=== PATIENT | male | born 1960 | race Caucasian/White ===

== ENCOUNTER 2019-08-26 10:45 | Inpatient (IN) ==
--- NOTE | 2019-08-11 15:12 | PAT Medication Instructions ---
Medication Instructions Date of Service August 11, 2019 Home Medications ascorbic acid (vitamin C) [Vitamin C] 1,000 mg PO DAILY 08/05/19 [History Confirmed 08/05/19] aspirin [Aspirin Low Dose] 81 mg PO DAILY 08/05/19 [History Confirmed 08/05/19] cholecalciferol (vitamin D3) [Vitamin D3] 1,000 unit PO DAILY cyanocobalamin (vitamin B-12) 1,000 mcg PO DAILY 08/05/19 [History Confirmed 08/05/19] labetalol 600 mg PO BID 08/05/19 [History Confirmed 08/05/19] lisinopril 40 mg PO QAM 08/05/19 [History Confirmed 08/05/19] loperamide [Imodium A-D] 2 mg PO UD PRN vitamin E 400 unit PO DAILY 08/05/19 [History Confirmed 08/05/19] ASK your prescriber and surgeon aspirin [Aspirin Low Dose] 81 mg PO DAILY 08/05/19 [History Confirmed 08/05/19] STOP taking 2 weeks before surgery (or as soon as possible if surgery is within 2 weeks) vitamin E 400 unit PO DAILY 08/05/19 [History Confirmed 08/05/19] DO NOT take the morning of surgery ascorbic acid (vitamin C) [Vitamin C] 1,000 mg PO DAILY 08/05/19 [History Confirmed 08/05/19] cholecalciferol (vitamin D3) [Vitamin D3] 1,000 unit PO DAILY cyanocobalamin (vitamin B-12) 1,000 mcg PO DAILY 08/05/19 [History Confirmed 08/05/19] lisinopril 40 mg PO QAM 08/05/19 [History Confirmed 08/05/19] loperamide [Imodium A-D] 2 mg PO UD PRN Take morning of surgery With a small sip of water, OTHERWISE NOTHING TO EAT OR DRINK AFTER MIDNIGHT: labetalol 600 mg PO BID 08/05/19 [History Confirmed 08/05/19] Take evening before surgery labetalol 600 mg PO BID 08/05/19 [History Confirmed 08/05/19] loperamide [Imodium A-D] 2 mg PO UD PRN (if needed) Other Notes If you have any questions please call us at [phone] or [phone] or [phone] or [phone]
--- NOTE | 2019-08-12 11:08 | Anesthesiology Consultation ---
Date of Service August 12, 2019 Assessment & Plan (1) Encounter for pre-operative examination: Chart Review Chart Review: Pending: Refer to Additional Notes / Consult section (pending preop testing (labs, EKG, CXR)) and Patient seen in Pre Admission Testing Teaching & Discussion Pre-Anesthesia Teaching/Discussion Notes: Instructed NPO after midnight before surgery,except medications with 15 cc of water. Medication instructions provi ded according to the PAT guidelines. History Surgery Operation Date: 08/26/19 07:45 Proposed Procedures p L3-L5 Decompression and Fusion, Spinal Cord Monitoring - Boby Arredondo, Height/Weight Height: 6 ft 2.5 in Weight: 148.2 kg Allergies Allergy/AdvReac Type Severity Reaction Status Date / Time No Known Allergies Allergy Verified 08/05/19 12:23 Medications Home Medications Medication Instructions Recorded Confirmed Last Taken ascorbic acid (vitamin C) [Vitamin 1,000 mg PO DAILY 08/05/19 08/05/19 Unknown C] aspirin [Aspirin Low Dose] 81 mg PO DAILY 08/05/19 08/05/19 Unknown cholecalciferol (vitamin D3) 1,000 unit PO DAILY 08/05/19 08/05/19 Unknown [Vitamin D3] cyanocobalamin (vitamin B-12) 1,000 mcg PO DAILY 08/05/19 08/05/19 Unknown labetalol 600 mg PO BID 08/05/19 08/05/19 Unknown lisinopril 40 mg PO QAM 08/05/19 08/05/19 Unknown loperamide [Imodium A-D] 2 mg PO UD PRN 08/05/19 08/05/19 Unknown vitamin E 400 unit PO DAILY 08/05/19 08/05/19 Unknown Past Medical History Medical History Degenerative disc disease Hypertension Morbid obesity Sleep apnea CPAP Exercise / Class Metabolic Activity III < 4 Walking/Shop/Light housework Past Family History Family History Father Family history of diabetes mellitus Past Surgical History Surgical History History of appendectomy History of cholecystectomy History of colonoscopy History of herniorrhaphy History of tonsillectomy and adenoidectomy Hx of vasectomy Past Anesthesia History No Hx of Anesthesia Complications and No Family Hx of Anesthesia Complications History of PONV No Hx of PONV and No Hx of Motion Sickness Social History Smoking Status: Never smoker Do You Dip or Chew Tobacco: Yes (5 CANS/WEEK- ADVISED NPO) Hx Alcohol Use: Yes Alcohol type: beer alcohol intake frequency: a few times a week Hx Substance Use: No substance use type: does not use Review of Systems Rare reflux. Patient denies chest pain, shortness of breath, cough, wheezing, palpitations. Physical Exam Vital Signs VITALS BP 156/96 P 71 TEMP 98.3 SP02 96%RA RESP 18 PHYSICAL Full neck and c-spine range of motion. Full TMJ range of motion. TMD 4 finger breaths Mallampati Score 1 Dentition: intact Lungs: clear throughout to auscultation Cardiac: regular rate and rhythm, no murmurs noted Spine: normal Carotid arteries: negative bruit Extremities: no edema Trimmed rodriguez Short, thick neck
[2019-08-12 12:33] LABS: Basophils # (auto) 0.04 K/uL (0-0.2); Basophils % (auto) 0.4 %; Eosinophils # (auto) 0.18 K/uL (0-0.5); Eosinophils % (auto) 1.9 %; Hematocrit (blood only) 45.7 % (42-52); Hemoglobin 16.4 g/dL (14.0-18.0); Immature Granulocytes # (auto) 0.03 K/uL (0.00-0.02); Immature Granulocytes % (auto) 0.3 %; Lymphocytes # (auto) 2.79 K/uL (1.2-3.4); Mean Corpuscular Hemoglobin 32.6 pg (25-34); Mean Corpuscular Hgb Conc 35.9 g/dL (32-36); Mean Corpuscular Volume 90.9 fL (80-100); Mean Platelet Volume 9.7 fL (7.4-10.4); Monocytes % (auto) 5.4 %; Neutrophils # (auto) 5.76 K/uL (1.4-6.5); Platelet Count 174 K/uL (130-400); RDW Coefficient of Variation 13.1 % (11.5-14.5); RDW Standard Deviation 43.1 fL (36.4-46.3); Red Blood Count 5.03 M/uL (4.7-6.1)
[2019-08-12 12:36] LABS: Appearance Urine Cloudy (Clear); Bacteria Urine Automated Negative (Negative); Bilirubin Urine Negative (Negative); Blood Urine Negative (Negative); Color Urine Dark Yellow; Epithelial Cell Urine Auto >30 /lpf (0-5); Glucose Urine UA Negative (Negative); Ketones Urine Trace (Negative); Leukocyte Esterase Urine 1+ (Negative); Nitrite Urine Negative (Negative); Protein Urine 1+ (Negative); Specific Gravity Urine 1.025 (1.000-1.030); Urobilinogen Urine Negative (Negative); pH Urine 5.5 (4.5-7.5)
[2019-08-12 12:44] LABS: INR 1.1 (0.9-1.1)
--- NOTE | 2019-08-12 12:45 | XRay Report ---
XR chest Pre-admission PA/Lat HISTORY: Preop. COMPARISON: None. FINDINGS: Eventration of the right hemidiaphragm. Right basilar linear densities favor subsegmental a telectasis or scarring. Otherwise, the lungs are clear. No pleural effusions. No pneumothorax. The he art is normal in size. IMPRESSION: No acute process. Electronically signed by: Chuck Michael M.D. 08/12/2019 12:44 PM
[2019-08-12 12:52] LABS: BUN Creatinine Ratio 10.3 (10-20); Calcium 9.2 mg/dl (8.5-10.1); Creatinine Clr Calc Pharmacy 98.1 ml/min; Est GFR (African American) 70.7; Potassium 4.3 mmol/L (3.5-5.1)
[~2019-08-26 10:45] MED LIST: ACETAMINOPHEN 500 MG TAB PO SCH; CEFAZOLIN 3000MG 72.5 ML IV SCH; CeleBREX 200 MG CAP PO SCH; GABAPENTIN 600 MG DOSE PO SCH; LR 15ML/HR IV SCH; SODIUM CHLORIDE 0.9% 250 ML IV PRN
[2019-08-26] MEDS ORDERED: HYDROmorphone INJ 2 MG/ML SYR/VIAL ONE ×2 (11:16→13:44)
[2019-08-26] MEDS ORDERED: MIDAZOLAM HCL 1 MG/ML 2ML VIAL ONE (11:16)
[2019-08-26] MEDS ORDERED: fentaNYL citrate 100 MCG/2 ML VIAL ONE ×5 (11:16→13:49)
[2019-08-26] MEDS ORDERED: LABETALOL HCL IV 5 MG/ML 20ML IV PRN (12:36)
[2019-08-26] MEDS ORDERED: ONDANSETRON INJ 2 MG/ML 2 ML VIAL IV PRN ×2 (12:36→17:15)
[2019-08-26] MEDS ORDERED: ATROPINE SULFATE 0.1 MG/ML 10ML SYR IV PRN ×2 (12:36→16:27)
--- NOTE | 2019-08-26 12:44 | History & Physical Bridge Note ---
Date of Service August 26, 2019 History & Physical Bridge Note I have examined the patient, reviewed the History & Physical and in the interval since the performance of the History & Physical I have noted the following changes of clinical significance: no changes noted
--- NOTE | 2019-08-26 12:45 | History & Physical Report ---
Date of Service August 26, 2019 Assessment & Plan (1) Neurogenic claudication due to lumbar spinal stenosis: Decompression fusion L3-L5 Present on Admission?: Yes History of Present Illness Chief Complaint: Back and bilateral leg pain Primary Care Provider: Mónica Beavers This is a 59-year-old male who presents with chronic persistent back and bilateral leg pain. Failing extensive course of nonoperative care is here for surgical intervention. Allergies Allergy/AdvReac Type Severity Reaction Status Date / Time No Known Allergies Allergy Verified 08/26/19 11:11 Home Medications Home Medications Medication Instructions Recorded Confirmed Type ascorbic acid (vitamin C) [Vitamin 1,000 mg PO DAILY 08/05/19 08/26/19 History C] aspirin [Aspirin Low Dose] 81 mg PO DAILY 08/05/19 08/26/19 History cholecalciferol (vitamin D3) 1,000 unit PO DAILY 08/05/19 08/26/19 History [Vitamin D3] cyanocobalamin (vitamin B-12) 1,000 mcg PO DAILY 08/05/19 08/26/19 History labetalol 600 mg PO BID 08/05/19 08/26/19 History lisinopril 40 mg PO QAM 08/05/19 08/26/19 History loperamide [Imodium A-D] 2 mg PO UD PRN 08/05/19 08/26/19 History vitamin E 400 unit PO DAILY 08/05/19 08/26/19 History Past Med/Surg History Medical History Degenerative disc disease Hypertension Morbid obesity Sleep apnea CPAP Surgical History History of appendectomy History of cholecystectomy History of colonoscopy History of herniorrhaphy History of tonsillectomy and adenoidectomy Hx of vasectomy Family History Father Family history of diabetes mellitus Social History Preferred Language: Latvian Communication Ability: Effective 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 Beliefs That Will Affect Care: None Current Living Situation: Significant Other Other Information That Helps Us Care for You: No Feels Safe at Home: Yes Safety Concerns: Feels Safe At This Time Smoking Status: Never smoker Tobacco Type: smokeless tobacco ; Do You Dip or Chew Tobacco: Yes (5 CANS/WEEK- ADVISED NPO) ; Second Hand Exposure: Yes (PREVIOUS EXPOSURE) ; Tobacco Cessation Education Requested by Patient: No Hx Alcohol Use: Yes Alcohol type: beer Hx Substance Use: No Physical Exam Physical Exam: Alert and oriented neurologically intact Results & Data Vital Signs (Past 12 Hours) Vital Signs Temp Pulse Resp BP Pulse Ox 08/26/19 11:50 162/91 H 08/26/19 11:13 36.5 C 72 20 193/115 H 96
[2019-08-26] MEDS ORDERED: BUPIVACAINE/EPINEPHRINE 0.5% MPF 1:200,000 10 ML VIAL ONE (13:07)
[2019-08-26] MEDS ORDERED: BACITRACIN INJ 50,000 UNIT VIAL ONE (13:08)
[2019-08-26] MEDS ORDERED: PROPOFOL IV EMULSION 10 MG/ML 20 ML VIAL IV ONE (13:53)
[2019-08-26] MEDS ORDERED: PHENYLEPHRINE 100MCG/ML 5ML SYR ONE (13:53)
[2019-08-26] MEDS ORDERED: LIDOCAINE HCL 2% 2 ML VIAL/AMP(20MG/ML) INFIL ONE (13:53)
[2019-08-26] MEDS ORDERED: ePHEDrine sulfate 50 MG/ML AMP ONE ×2 (13:53→14:04)
[2019-08-26] MEDS ORDERED: GLYCOPYRROLATE 0.2 MG/ML VIAL ONE (13:53)
[2019-08-26] MEDS ORDERED: DEXAMETHASONE SOD INJ 4 MG/ML VIAL ONE (13:53)
[2019-08-26] MEDS ORDERED: ONDANSETRON INJ 2 MG/ML 2 ML VIAL ONE (13:53)
[2019-08-26] MEDS ORDERED: ROCURONIUM BROMIDE 10 MG/ML 5 ML VIAL ONE (13:53)
[2019-08-26] MEDS ORDERED: ePHEDrine sulfate 50 MG/ML SYR ONE (13:53)
[2019-08-26] MEDS ORDERED: NEOSTIGMINE METHYLSULFATE 1 MG/ML 10ML VIAL ONE (13:53)
[2019-08-26] MEDS ORDERED: FLOSEAL HEMOSTATIC MATRIX 10ML TOP ONE (13:55)
[2019-08-26] MEDS ORDERED: THROMBIN FOR SOLN 20000 UNIT KIT ONE (14:03)
[2019-08-26] MEDS ORDERED: LARYING-O-JET KIT (LTA) ONE (14:09)
--- NOTE | 2019-08-26 15:30 | Operative Report ---
Post Operative Report Pre & Post Diagnosis Operation Date: 08/26/19 12:55 Pre-Op Diagnosis: Spinal stenosis of lumbar region with neurogenic claudication Post-Op Diagnosis: Spinal stenosis of lumbar region with neurogenic claudication I identified the patient and participated in the time-out.: Yes Procedure Operation Date: 08/26/19 12:55 Actual Procedures #1 lumbar decompression with bilateral medial facetectomies and foraminotomies L2-3 L3-4 L4-5 per #2 posterior spinal fusion L3-4 L4-5. #3 placement of posterior instrumentation L3-4 L4-5. #4 interbody fusion L3-4 L4-5. #5 placement of titanium 11 x 26 mm cage at L3-4 and 13 x 26 mm cage at L4-5 per #6 placement of locally harvested morselized autograft in the posterior lateral gutters. #7 placement infuse collagen sponge, master graft in the posterior lateral gutters and ostial amp and interbody space. Surgeon Boby Arredondo, DO Drapery Estimator Arlette Sy Estimated Blood Loss 400 Findings See Below Patient is 6 foot 2 inches tall weighing over 148 kg with a BMI in excess of 41. The patient's body habitus created significant technical difficulty throughout the procedure requiring her longer instruments and retractors in order to p erform his procedure. This added at least 50% increase in operative time. Specimens None Indications This is a 59-year-old male who presents with severe spinal stenosis and inability to ambulate's. Subsequently he like to undergo the above-mentioned procedure. Description of Procedure Patient was met with identified and informed consent obtained. Patient was then taken to the operative suite underwent intubation placed in the prone position the Damian table on top of the Willi frame. All bony prominences well-padded eyes inspected to ensure no external pressure placed upon but this point the lumbar spine was prepped and draped in normal sterile fashion. Sharp dissection with the assistance of Bovie cautery was then performed down to and exposing the lamina and transverse processes of L3-L4-L5 bilaterally. From caudal cephalad fashion complete laminectomy of L4 L3 and partial laminectomy of L2 was performed including bilateral medial facetectomies foraminotomies addressing severe spinal stenosis. Pedicle screws were then placed in L3-L4-L5 bilaterally with assistance of fluoroscopy and the probably size debbie placed. By way of a transforaminal approach and left the discectomy of L4-5 was performed endplates curetted to subcortical mean bone and a 13 x 26 mm titanium cage filled with osteo-amp bone graft tapped in position. Then proceeded to L3-[address] of a transforaminal approach and left complete discectomy performed endplates curetted to subcortical bleeding bone and a 11 x 26 mm titanium cage filled with ostium bone graft tapped in position. The rods were then compressed locked in final position bilaterally. The transverse processes of L3-L4-L5 bur to subcortical bleeding bone. Infuse collagen sponge master graft and local autograft placed in the posterior lateral gutters. 15 round MARYAM drain inserted. The incision was then closed with 1 Vicryl in the fascia 2-0 Vicryl subcutaneous and 4 Monocryl for final skin closure. Steri-Strip sterile dressings placed. Patient will continue PACU stable disc. Please note Arlette Sy present all the entire procedure involved the patient positioning complex portions of the surgery and final skin closure. Lastly spinal cord monitoring was utilized thr oughout the procedure and no changes noted. I attest to the content of the Intraoperative Record and any orders documented therein. Any exceptions are noted below.
[2019-08-26] MEDS ORDERED: LABETALOL HCL IV 5 MG/ML 20ML IV ONE (15:47)
[2019-08-26] MEDS ORDERED: ESMOLOL HCL INJ 10 MG/ML 10ML VIAL IV ONE (15:47)
[2019-08-26] MEDS: HYDROmorphone INJ 1 MG/ML SYRINGE IV PRN ×4 (16:19→16:34)
[2019-08-26] MEDS ORDERED: HydrALAZINE HCL 20 MG/ML VIAL ONE (16:26)
[2019-08-26] MEDS ORDERED: ePHEDrine sulfate 50 MG/ML AMP IV PRN (16:27)
[2019-08-26] MEDS ORDERED: HydrALAZINE HCL 20 MG/ML VIAL IV STA (16:28)
--- NOTE | 2019-08-26 16:40 | Fluoroscopy Report ---
INTRAOPERATIVE RADIOGRAPHS CLINICAL HISTORY: L3-L5 spinal fusion. Fluoroscopy time: 25 seconds. FINDINGS: 2 spot fluoroscopic views of the lower lumbar spine are presented. There has been discectom y at L3-L4 and L4-L5 with laminectomy and posterior fusion from L3-L5. Interpedicular screws are pres ent at all levels. The orthopedic hardware appears intact. IMPRESSION: Intraoperative images from L3-L5 spinal fusion as above. Electronically signed by: Chandler Balderas M.D. 08/26/2019 4:38 PM
--- NOTE | 2019-08-26 16:42 | Anesthesiology Progress Note ---
Date of Service August 26, 2019 Anesthesia Post Procedure Vital Signs Vital Signs: Temp Pulse Pulse Resp BP Pulse Ox 08/26/19 16:39 37.0 C 87 20 137/99 94 08/26/19 16:30 86 21 152/93 H 95 08/26/19 16:20 77 20 155/97 H 93 08/26/19 16:10 78 21 153/97 H 97 08/26/19 16:00 80 16 165/103 H 97 08/26/19 15:51 36.6 C 88 16 155/99 H 98 08/26/19 11:50 162/91 H 08/26/19 11:13 36.5 C 72 20 193/115 H 96 Pain Intensity Back: Pain Intensity: 3 Transfer of Care Handoff Completed per policy Notes Mental Status: alert / awake / arousable Patient Amnestic to Procedure: Yes Nausea / Vomiting: adequately controlled Pain: adequately controlled Airway Patency, RR, SpO2: stable & adequate BP & HR: stable & adequate Hydration State: stable & adequate Anesthetic Complications: no major complications apparent
[2019-08-26] MEDS ORDERED: DO NOT ADMINISTER PNEUMOCOCCAL VACCINE PRN (17:15)
[2019-08-26] MEDS ORDERED: DO NOT ADMINISTER FLU VACCINE PRN (17:15)
[2019-08-26] MEDS ORDERED: NALOXONE HCL 0.4 MG/1 ML VIAL/CARP IV PRN (17:15)
[2019-08-26] MEDS ORDERED: MAGNESIUM HYDROXIDE SUSP 30 ML UDC PO PRN (17:15)
[2019-08-26] MEDS ORDERED: SOD PHOSPHATE/SOD BIPHOSPHATE ENEMA 132 ML BTL PR PRN (17:15)
[2019-08-26] MEDS ORDERED: FAMOTIDINE 20 MG TAB PO PRN (17:15)
[2019-08-26] MEDS ORDERED: METOCLOPRAMIDE HCL INJ 5 MG/ML 2 ML VIAL IV PRN (17:15)
[2019-08-26] MEDS ORDERED: LORazepam 0.5 MG TAB PO PRN (17:15)
[2019-08-26] MEDS ORDERED: PROMETHAZINE HCL 12.5 MG in SODIUM CHLORIDE 0.9% 50 ML IV PRN (17:15)
[2019-08-26] MEDS ORDERED: ACETAMINOPHEN 1,000 MG/100 ML VIAL IV PRN (17:15)
[2019-08-26] MEDS ORDERED: LOPERAMIDE HCL 2 MG CAP PO PRN (17:15)
[2019-08-26] MEDS ORDERED: HYDROmorphone INJ 1 MG/ML SYRINGE IV PRN (17:15)
[2019-08-26] MEDS ORDERED: LORazepam 0.5 MG/1 ML VIAL IV PRN (17:15)
[2019-08-26] MEDS ORDERED: ONDANSETRON 4 MG OD TAB PO PRN (17:15)
[2019-08-26] MEDS ORDERED: BISACODYL 10 MG SUPP PR PRN (17:15)
[2019-08-26] MEDS ORDERED: HYDROmorphone INJ 0.5 MG/0.5 ML SYR IV PRN (17:15)
--- NOTE | 2019-08-26 17:59 | Consultation ---
Date of Consultation August 26, 2019 Assessment & Plan (1) Neurogenic claudication due to lumbar spinal stenosis: S/P POD #[address] Arredondo #1 lumbar decompression with bilateral medial facetectomies and foraminotomies L2-3 L3-4 L4-5 per #2 posterior spinal fusion L3-4 L4-5. #3 placement of posterior instrumentation L3-4 L4-5. #4 interbody fusion L3-4 L4-5. #5 placement of titanium 11 x 26 mm cage at L3-4 and 13 x 26 mm cage at L4-5 per #6 placement of locally harvested morselized autograft in the posterior lateral gutters. #7 placement infuse collagen sponge, master graft in the posterior lateral gutters and ostial amp and interbody space. Tolerated procedure well EBL 400ml, MARYAM drain output 205ml pain/wound management per ortho activity and therapy as directed by ortho encourage incentive spirometry, wean O2 when able Follow H&H (2) Hypertension: blood pressure controlled continue lisinopril and labetolol (3) Sleep apnea: CPAP at HS (4) Tobacco abuse: smokeless tobacco user encourage tobacco cessation nicotine patch ordered (5) Morbid obesity: BMI 41.4, encourage lifestyle modifications (6) DVT prophylaxis: SCD/TEDS per attending Disposition: per primary Follow up: PCP Dr. Beavers upon discharge Patient was seen and examined in collaboration with Dr. Mabry, please see addendum Starting 08/27/19 pt will be under the care of Dr. Hernandez Thank you for this consultation. We will follow the patient with you during their hospital stay. You can reach a member of the [facility] Hospitalist Team 23/04 via pager @ [phone]. Supervising Physician Co-Signing Physician Notes ROS-No Headache, No Visual Changes, No Nausea, No Vomiting, No Fever, No Chills, No Neck Pain or Stiffness, No Chest Pain, No Palpitations, No SOB, No CH, No Cough, No Sputum, No Wheezing, No Abdominal Pain, No Diarrhea, No Hematemesis, No Hemoptysis, No Unexpected Weight Loss, No Flank pain, No Melena, No Hematochezia, No Frequency, No Urgency, No Burning, No Hematuria, No Rashes, No Diaphoresis. Appetite is Normal, Sore Back, LLE pain not present currently Physical Exam Gen-AAO x 3, NAD, Afebrile, Obese Head-NCAT, EOMI, PERRLA, Anicteric Sclera, No Posterior Pharyngeal Erythema Neck-Supple, No JVD, No Thyromegaly, No Masses, No LAD, No Bruits Lungs-Clear to Auscultation Bilaterally, No Rales, No Rhonchi, No Wheezing, No Crepitus Chest-No S4, +S1, +S2, No S3, No Murmurs, No Rubs, No Gallops, No Ectopy Abdomen-Soft, Bowel Sounds Present, Non Tender, Non Distended, No Hepatomegaly, No Splenomegaly, No Palpable Masses, No Rebound, No Rigidity, No Guarding Musculoskeletal-Full Range of Motion Bilaterally, No CVAT Extremities-No Cyanosis, No Clubbing, No Edema Nuero-Cranial Nerves II-XII grossly intact, Motor WNL, DTRs WNL, Strength WNL, Non Focal Psych-Normal Mood History of Present Illness Requesting Physician: Dr. Arredondo Reason for Consultation: Post op medical management Attending Physician: Boby Arredondo, History of Present Illness This is a 59 yr old M who has significant PMH of HTN, EZIO on CPAP, tobacco abuse, lumbar spinal stenosis with neurogenic claudication who presents to [facility] for elective lumbar procedure by Dr. Arredondo. Significant other at bedside. He tolerated procedure well. Complaining of incisional discomfort. Denies fever, chills, sweats, lightheadedness, dizziness, chest pain, shortness breath, palpitation, cough, nausea, vomiting, abdominal pain. Currently has Up cath in place. Offers no complaints or concerns post operatively. Allergies Allergy/AdvReac Type Severity Reaction Status Date / Time No Known Allergies Allergy Verified 08/26/19 11:11 Home Medications Home Medications Medication Instructions Recorded Confirmed Type ascorbic acid (vitamin C) [Vitamin 1,000 mg PO DAILY 08/05/19 08/26/19 History C] aspirin [Aspirin Low Dose] 81 mg PO DAILY 08/05/19 08/26/19 History cholecalciferol (vitamin D3) 1,000 unit PO DAILY 08/05/19 08/26/19 History [Vitamin D3] cyanocobalamin (vitamin B-12) 1,000 mcg PO DAILY 08/05/19 08/26/19 History labetalol 600 mg PO BID 08/05/19 08/26/19 History lisinopril 40 mg PO QAM 08/05/19 08/26/19 History loperamide [Imodium A-D] 2 mg PO UD PRN 08/05/19 08/26/19 History vitamin E 400 unit PO DAILY 08/05/19 08/26/19 History Patient History Medical History Degenerative disc disease Hypertension Morbid obesity Sleep apnea CPAP Surgical History History of appendectomy History of cholecystectomy History of colonoscopy History of herniorrhaphy History of tonsillectomy and adenoidectomy Hx of vasectomy Family History Father Family history of diabetes mellitus CHF (congestive heart failure) Social History Preferred Language: Luxembourger Communication Ability: Effective Director [employer] Required: No Beliefs That Will Affect Care: None Current Living Situation: Significant Other Other Information That Helps Us Care for You: No Feels Safe at Home: Yes Safety Concerns: Feels Safe At This Time Smoking Status: Never smoker Tobacco Type: smokeless tobacco ; Do You Dip or Chew Tobacco: Yes (5 CANS/WEEK- ADVISED NPO) ; Second Hand Exposure: Yes (PREVIOUS EXPOSURE) ; Tobacco Cessation Education Requested by Patient: No Hx Alcohol Use: Yes Alcohol type: beer Hx Substance Use: No Review of Systems Review of Systems: All systems reviewed & are unremarkable except as noted in HPI & below Physical Exam Physical Exam: Constitutional: WD/WN, M, obese, vitals as above, NAD, sitting up in bed, pleasant, conversing easily Head: Normocephalic, Atraumatic Eyes: PERRL, conjunctivae normal, anicteric sclerae ENMT: external ear and nose normal, oropharynx normal Neck: trachea midline, no thyromegaly normal visual inspection Respiratory: normal respiratory effort, lungs clear to auscultation, no wheeze, rales, rhonchi. Normal insp/exp effort, no accessory muscle use Cardiovascular: RRR, no murmur, trace lower ext edema, SCD/TEDS Vessels: no JVD or carotid bruit Chest: normal inspection of chest Abdomen: normal bowel sounds, soft, nontender, no hepatosplenomegaly Musculoskeletal: no cyanosis or clubbing, extremities motor strength 5/5 , lumbar dressing CDI, MARYAM dressing with serosanginous drainage Skin: no rashes, warm and dry normal turgor Neurologic: PERRL, EOMI, accommodation nl, no face palsy, no dysarthria CN's II-XI intact bilaterally and moves all extremities Psychiatric: A+Ox3, euthymic affect Lymphatic: no cervical or axillary lymphadenopathy : deferred Results & Data Vital Signs (Past 12 Hours) Vital Signs Temp Pulse Pulse Resp BP Pulse Ox 08/26/19 17:10 36.9 C 83 16 135/85 95 08/26/19 16:50 37.0 C 84 18 144/87 H 94 08/26/19 16:40 37.0 C 87 20 137/99 94 08/26/19 16:30 86 21 152/93 H 95 08/26/19 16:20 77 20 155/97 H 93 08/26/19 16:10 78 21 153/97 H 97 08/26/19 16:00 80 16 165/103 H 97 08/26/19 15:51 36.6 C 88 16 155/99 H 98 08/26/19 11:50 162/91 H 08/26/19 11:13 36.5 C 72 20 193/115 H 96 Laboratory Results Preop lab work on 08/12/19 H&H 16.1 45.7, WBC 9.3, platelet 174 BUN/creatinine 13 and 1.30 Diagnostic Findings Lumbar Spine Xray: IMPRESSION: Intraoperative images from L3-L5 spinal fusion as above. CXR: IMPRESSION: No acute process. Medications Administered Discontinued Medications Acetaminophen (Tylenol) 1,000 mg PO PREOP LURDES Stop: 08/26/19 18:00 Last Admin: 08/26/19 11:24 Dose: 1,000 mg Documented by: [id number] Bacitracin (Bacitracin) Confirm Administered Dose 50,000 units .ROUTE .STK-MED ONE Stop: 08/26/19 13:09 Last Admin: 08/26/19 15:21 Dose: 50,000 units Documented by: [id number] Bupivacaine HCl/Epinephrine Bitart (Sensorcaine/Epinephrine 0.5% Mpf 1:200,000) Confirm Administered Dose 30 ml .ROUTE .STK-MED ONE Stop: 08/26/19 13:08 Last Admin: 08/26/19 13:55 Dose: 30 ml Documented by: [id number] Celecoxib (Celebrex) 200 mg PO PREOP LURDES Stop: 08/26/19 18:00 Last Admin: 08/26/19 11:24 Dose: 200 mg Documented by: [id number] Gabapentin (Neurontin) 600 mg PO PREOP LURDES Stop: 08/26/19 18:00 Last Admin: 08/26/19 11:25 Dose: 600 mg Documented by: [id number] Hydralazine HCl (Hydralazine Hcl) Confirm Administered Dose 20 mg .ROUTE .STK- MED ONE Stop: 08/26/19 16:27 Last Admin: 08/26/19 17:25 Dose: Not Given Documented by: [id number] Hydralazine HCl (Hydralazine Hcl) 10 mg IV NOW STA Stop: 08/26/19 16:29 Last Admin: 08/26/19 16:29 Dose: 10 mg Documented by: [id number] Hydromorphone HCl (Dilaudid) 0.25 mg IV Q5M PRN PRN Reason: PACU Use Only-Pain Stop: 08/26/19 17:37 Last Admin: 08/26/19 16:34 Dose: 0.25 mg Documented by: [id number] Admin: 08/26/19 16:29 Dose: 0.25 mg Documented by: [id number] Admin: 08/26/19 16:24 Dose: 0.25 mg Documented by: [id number] Admin: 08/26/19 16:19 Dose: 0.25 mg Documented by: [id number] Lactated Ringer's (Lr) 1,000 mls @ 15 mls/hr IV .Q24H LURDES Stop: 08/27/19 05:59 Last Infusion: 08/26/19 17:26 Dose: 0 mls/hr Documented by: [id number] Admin: 08/26/19 11:27 Dose: 15 mls/hr Documented by: [id number] Cefazolin Sodium (Ancef 3000mg) 72.5 mls @ 130 mls/hr IV PREOP LURDES; Protocol Stop: 08/26/19 18:00 Last Infusion: 08/26/19 16:57 Dose: 0 mls/hr Documented by: [id number] Admin: 08/26/19 13:15 Dose: 130 mls/hr Documented by: [id number] Labetalol HCl (Normodyne) 5 mg IV Q5M PRN PRN Reason: PACU Use-SBP>160 or DBP>100 Stop: 08/26/19 17:37 Last Admin: 08/26/19 16:07 Dose: 10 mg Documented by: [id number] Cosigned by: [id number] Miscellaneous (Floseal Hemostatic Matrix 10ml) 10 ml TOP ONCE ONE Stop: 08/26/19 13:56 Last Admin: 08/26/19 15:22 Dose: 18 ml Documented by: [id number] Thrombin (Recothrom Kit) Confirm Administered Dose 20,000 units .ROUTE .STK-MED ONE Stop: 08/26/19 14:04 Last Admin: 08/26/19 15:22 Dose: Not Given Documented by: [id number] ECG Rate (beats per minute): 68 Rhythm: normal sinus Findings: + LAFB
[2019-08-26] MEDS: SODIUM CHLORIDE 0.9% 1000ML 1,000 ML IV SCH ×2 (18:11→23:24)
[2019-08-26] MEDS: KETOROLAC 30 MG/ML VIAL IV SCH ×2 (18:12→22:05)
[2019-08-26] MEDS: NICOTINE 14 MG/24 HR PATCH TD SCH (19:10)
[2019-08-26] MEDS: OXYCODONE HCL IR 5 MG TAB (IMMEDIATE RELEASE) PO PRN ×2 (19:23→22:59)
[2019-08-26] MEDS: DOCUSATE SODIUM/SENNA 50/8.6MG TAB PO SCH (20:25)
[2019-08-26] MEDS: LABETALOL HCL 300 MG TAB PO SCH (20:25)
[2019-08-26] MEDS: CEFAZOLIN 2000MG 2,000 MG/15 ML SYR IV SCH (20:30)
[2019-08-26] MEDS: ACETAMINOPHEN 500 MG TAB PO PRN (22:09)
[2019-08-27] MEDS: OXYCODONE HCL IR 5 MG TAB (IMMEDIATE RELEASE) PO PRN ×5 (03:49→20:30)
[2019-08-27] MEDS: CEFAZOLIN 2000MG 2,000 MG/15 ML SYR IV SCH (05:39)
[2019-08-27] MEDS: KETOROLAC 30 MG/ML VIAL IV SCH (05:39)
[2019-08-27] MEDS: POLYETHYLENE (MIRALAX) 17 GM PACK PO SCH ×4 (05:48→23:55)
[2019-08-27] MEDS: SODIUM CHLORIDE 0.9% 1000ML 1,000 ML IV SCH ×3 (05:48→18:51)
[2019-08-27 06:23] LABS: Basophils # (auto) 0.01 K/uL (0-0.2); Basophils % (auto) 0.1 %; Eosinophils # (auto) 0.01 K/uL (0-0.5); Eosinophils % (auto) 0.1 %; Hematocrit (blood only) 36.3 % (42-52); Hemoglobin 12.6 g/dL (14.0-18.0); Immature Granulocytes # (auto) 0.06 K/uL (0.00-0.02); Immature Granulocytes % (auto) 0.4 %; Lymphocytes # (auto) 1.56 K/uL (1.2-3.4); Lymphocytes % (auto) 10.1 %; Mean Corpuscular Hgb Conc 34.7 g/dL (32-36); Mean Corpuscular Volume 92.1 fL (80-100); Mean Platelet Volume 9.1 fL (7.4-10.4); Monocytes # (auto) 1.17 K/uL (0.11-0.59); Monocytes % (auto) 7.6 %; Neutrophils # (auto) 12.58 K/uL (1.4-6.5); Neutrophils % (auto) 81.7 %; Platelet Count 171 K/uL (130-400); RDW Coefficient of Variation 13.5 % (11.5-14.5); RDW Standard Deviation 45.1 fL (36.4-46.3); Red Blood Count 3.94 M/uL (4.7-6.1); White Blood Count 15.39 K/uL (4.8-10.8)
[2019-08-27 07:00] LABS: BUN Creatinine Ratio 15.4 (10-20); Creatinine Clr Calc Pharmacy 79.2 ml/min; Est GFR (Non-African American) 47.5; Potassium 4.3 mmol/L (3.5-5.1)
--- NOTE | 2019-08-27 07:58 | Anesthesiology Progress Note ---
Date of Service August 27, 2019 Anesthesia Post Procedure Vital Signs Vital Signs: Temp Pulse Pulse Pulse Resp BP BP 08/27/19 07:00 37 C 87 20 120/71 08/27/19 03:10 36.5 C 86 16 121/75 08/26/19 23:15 08/26/19 22:53 36.5 C 83 16 129/83 08/26/19 20:21 36.7 C 85 14 128/77 08/26/19 19:07 36.6 C 90 18 142/88 H 08/26/19 18:10 36.6 C 95 H 18 145/85 H 08/26/19 17:47 36.7 C 84 17 165/80 H 08/26/19 17:10 36.9 C 83 16 135/85 08/26/19 16:50 37.0 C 84 18 144/87 H 08/26/19 16:40 37.0 C 87 20 137/99 08/26/19 16:30 86 21 152/93 H 08/26/19 16:20 77 20 155/97 H 08/26/19 16:10 78 21 153/97 H 08/26/19 16:00 80 16 165/103 H 08/26/19 15:51 36.6 C 88 16 155/99 H 08/26/19 11:50 162/91 H 08/26/19 11:13 36.5 C 72 20 193/115 H Pulse Ox Pulse Ox 08/27/19 07:00 93 08/27/19 03:10 96 08/26/19 23:15 95 08/26/19 22:53 93 08/26/19 20:21 92 08/26/19 19:07 95 08/26/19 18:10 97 08/26/19 17:47 96 08/26/19 17:10 95 08/26/19 16:50 94 08/26/19 16:40 94 08/26/19 16:30 95 08/26/19 16:20 93 08/26/19 16:10 97 08/26/19 16:00 97 08/26/19 15:51 98 08/26/19 11:50 08/26/19 11:13 96 Pain Intensity Back: Pain Intensity: 3 Notes Mental Status: alert / awake / arousable and participated in evaluation Patient Amnestic to Procedure: Yes Nausea / Vomiting: adequately controlled Pain: adequately controlled Airway Patency, RR, SpO2: stable & adequate BP & HR: stable & adequate Hydration State: stable & adequate Anesthetic Complications: no major complications apparent and Pt Satisfied with anesthetic care
[2019-08-27] MEDS: NICOTINE 14 MG/24 HR PATCH TD SCH ×2 (08:18→10:13)
--- NOTE | 2019-08-27 08:47 | Hospitalist Progress Note ---
Date of Service August 27, 2019 Assessment & Plan (1) Neurogenic claudication due to lumbar spinal stenosis: S/P POD #[address] Arredondo #1 lumbar decompression with bilateral medial facetectomies and foraminotomies L2-3 L3-4 L4-5 per #2 posterior spinal fusion L3-4 L4-5. #3 placement of po sterior instrumentation L3-4 L4-5. #4 interbody fusion L3-4 L4-5. #5 placement of titanium 11 x 26 mm cage at L3-4 and 13 x 26 mm cage at L4-5 per #6 placement of locally harvested morselized autograft in the posterior lateral gutters. #7 placement infuse collagen sponge, master graft in the posterior lateral gutters and ostial amp and interbody space. Tolerated procedure well EBL 400ml, MARYAM drain output 665ml pain/wound management per ortho activity and therapy as directed by ortho encourage incentive spirometry, O2 weaned Follow H&H remove mendoza cath today (2) Acute renal insufficiency: mild elevation in cr baseline 1.3, today 1.59 likely pre renal in setting of poor intake yesterday hold nephrotoxic agents for now including toradol and lisinopril continue IVF until tolerating full diet repeat bmp in a.m. monitor UOP (3) Anemia: H&H stable at 12.6 and 36.3 Preop H&H 16.4 and 45.7 monitor (4) Hypertension: blood pressure controlled 120/71 continue labetolol hold lisinopril this morning in setting of mild renal insufficiency (5) Sleep apnea: CPAP at HS (6) Tobacco abuse: smokeless tobacco user encourage tobacco cessation nicotine patch ordered - pt took off this morning - will d/c for now If requests in future recommend 7mg (7) Morbid obesity: BMI 41.4, encourage lifestyle modifications (8) DVT prophylaxis: SCD/TEDS per attending Disposition: per primary Follow up: PCP Dr. Beavers upon discharge Patient was seen and examined in collaboration with Dr. Hernandez, please see addendum Thank you for this consultation. We will follow the patient with you during their hospital stay. You can reach a member of the [facility] Hospitalist Team 23/04 via pager @ [phone]. Supervising Physician Co-Signing Physician Notes Attending addendum: The patient was seen and examined in medical floor She is a status post lumbar decompression and fusion, POD #1 She complains to have some pain Denies any chest pain and/or palpitation, any abdominal pain nausea no vomiting, any numbness and/or tingling in the extremities On examination Sitting on a chair without any acute symptoms Hemodynamically stable Chest-clear to auscultate bilaterally Heart-S1-S2, regular Abdomen-benign Extremities-trace edema bilaterally Labs and imaging studies noted White count seems to be elevated at 15,000 likely secondary to stress, doubt any infection and will monitor Agree with assessment plan as outlined above by PINKY Crisostomo Dr Subjective Patient was seen and examined in room 316 with at bedside. Follow-up POD [address] Arredondo. He overall feels well this morning. Slept well overnight. Complains of minimal incisional discomfort. States this morning after taking pills he became short of breath last only a few seconds and went away. He also complains of cough, nonproductive. He denies any fever, chills, sweats, lightheadedness, dizziness, syncope, chest pain, palpitation, hemoptysis nausea, vomiting, abdominal pain. Passing minimal flatus. Tolerated clear liquids last night. He admits to not eating and drinking much prior to surgery. Discussed with nurse who states 125ml of UOP overnight. Review of Systems Review of Systems: All systems reviewed & are unremarkable except as noted in HPI & below Physical Exam Physical Exam: Gen: WD/WN, tall, obese, male, sitting up in bedside chair, comfortably, NAD, A&O x3 HEENT: Normocephalic, atraumatic, conjunctivae moist, sclerae anicteric, mucous membranes moist. Lung: Clear to Auscultation bilaterally, no wheezes/rales/rhonchi Heart: Regular rate, regular rhythm, no murmurs, rubs, or gallops Abdomen: Soft, NT, ND +BS x 4 Extremities: No edema, bilateral venous stasis changes noted, no erythema or warmth. Skin: Warm, no rash, negative turgor. Lumbar dressing CDI : Mendoza cath draining clear yellow urine Results & Data Vital Signs (Past 12 Hours) Vital Signs Temp Pulse Resp BP Pulse Ox Pulse Ox 08/27/19 07:00 37 C 87 20 120/71 93 08/27/19 03:10 36.5 C 86 16 121/75 96 08/26/19 23:15 95 08/26/19 22:53 36.5 C 83 16 129/83 93 Laboratory Results Short CBC 08/12/19 08/27/19 08/27/19 Range/Units 11:24 05:56 05:56 WBC 15.39 H (4.8-10.8) K/uL Hgb 12.6 L (14.0-18.0) g/dL Hct 36.3 L (42-52) % Plt Count 171 (130-400) K/uL BUN 13 24 H (7-18) mg/dl Creatinine 1.30 1.59 H (0.6-1.4) mg/dl BMP 08/27/19 05:56 Sodium 138 Potassium 4.3 Chloride 109 H Carbon Dioxide 20 L BUN 24 H Creatinine 1.59 H Glucose 120 H Calcium 8.0 L Medications Administered Acetaminophen (Tylenol) 1,000 mg PO Q8H PRN PRN Reason: MILD Pain Rating 1,2,3 Stop: 09/25/19 17:14 Last Admin: 08/26/19 22:09 Dose: 1,000 mg Documented by: [id number] Sodium Chloride (Nss 1000ml) 1,000 mls @ 150 mls/hr IV .Q6H40M [facility] Stop: 09/25/19 17:14 Last Admin: 08/27/19 05:48 Dose: 150 mls/hr Documented by: [id number] Infusion: 08/27/19 05:48 Dose: 150 mls/hr Documented by: [id number] Admin: 08/26/19 23:24 Dose: 150 mls/hr Documented by: [id number] Infusion: 08/26/19 23:24 Dose: 150 mls/hr Documented by: [id number] Admin: 08/26/19 18:11 Dose: 150 mls/hr Documented by: [id number] Ketorolac Tromethamine (Toradol) 30 mg IV Q6H [facility] Last Admin: 08/27/19 05:39 Dose: 30 mg Documented by: [id number] Admin: 08/26/19 22:05 Dose: 30 mg Documented by: [id number] Admin: 08/26/19 18:12 Dose: 30 mg Documented by: [id number] Labetalol HCl (Normodyne) 600 mg PO BID [facility] Stop: 09/25/19 20:59 Last Admin: 08/26/19 20:25 Dose: 600 mg Documented by: [id number] Miscellaneous (Remove Nicoderm Patch) 1 ea N/A DAILY@0859 [facility] Stop: 09/26/19 08:58 Last Admin: 08/27/19 08:18 Dose: 1 ea Documented by: [id number] Nicotine (Nicoderm Cq) 14 mg TD QAM [facility] Stop: 09/25/19 18:14 Last Admin: 08/26/19 19:10 Dose: 14 mg Documented by: [id number] Oxycodone HCl (Roxicodone Immediate Rel) 5 - 10 mg PO Q4H PRN PRN Reason: Moderate-Severe Pain Stop: 09/09/19 17:14 Last Admin: 08/27/19 07:38 Dose: 10 mg Documented by: [id number] Admin: 08/27/19 03:49 Dose: 10 mg Documented by: [id number] Admin: 08/26/19 22:59 Dose: 10 mg Documented by: [id number] Admin: 08/26/19 19:23 Dose: 5 mg Documented by: [id number] Polyethylene Glycol (Miralax Powder Packet) 17 gm PO Q6 [facility] Stop: 09/26/19 05:59 Last Admin: 08/27/19 05:48 Dose: 17 gm Documented by: [id number] Senna/Docusate Sodium (Senokot S) 2 tab PO HS [facility] Stop: 09/25/19 20:59 Last Admin: 08/26/19 20:25 Dose: 2 tab Documented by: [id number] Discontinued Medications Acetaminophen (Tylenol) 1,000 mg PO PREOP [facility] Stop: 08/26/19 18:00 Last Admin: 08/26/19 11:24 Dose: 1,000 mg Documented by: [id number] Bacitracin (Bacitracin) Confirm Administered Dose 50,000 units .ROUTE .STK-MED ONE Stop: 08/26/19 13:09 Last Admin: 08/26/19 15:21 Dose: 50,000 units Documented by: [id number] Bupivacaine HCl/Epinephrine Bitart (Sensorcaine/Epinephrine 0.5% Mpf 1:200,000) Confirm Administered Dose 30 ml .ROUTE .STK-MED ONE Stop: 08/26/19 13:08 Last Admin: 08/26/19 13:55 Dose: 30 ml Documented by: [id number] Celecoxib (Celebrex) 200 mg PO PREOP [facility] Stop: 08/26/19 18:00 Last Admin: 08/26/19 11:24 Dose: 200 mg Documented by: [id number] Gabapentin (Neurontin) 600 mg PO PREOP [facility] Stop: 08/26/19 18:00 Last Admin: 08/26/19 11:25 Dose: 600 mg Documented by: [id number] Hydralazine HCl (Hydralazine Hcl) Confirm Administered Dose 20 mg .ROUTE .STK- MED ONE Stop: 08/26/19 16:27 Last Admin: 08/26/19 17:25 Dose: Not Given Documented by: [id number] Hydralazine HCl (Hydralazine Hcl) 10 mg IV NOW STA Stop: 08/26/19 16:29 Last Admin: 08/26/19 16:29 Dose: 10 mg Documented by: [id number] Hydromorphone HCl (Dilaudid) 0.25 mg IV Q5M PRN PRN Reason: PACU Use Only-Pain Stop: 08/26/19 17:37 Last Admin: 08/26/19 16:34 Dose: 0.25 mg Documented by: [id number] Admin: 08/26/19 16:29 Dose: 0.25 mg Documented by: [id number] Admin: 08/26/19 16:24 Dose: 0.25 mg Documented by: [id number] Admin: 08/26/19 16:19 Dose: 0.25 mg Documented by: [id number] Lactated Ringer's (Lr) 1,000 mls @ 15 mls/hr IV .Q24H [facility] Stop: 08/27/19 05:59 Last Infusion: 08/26/19 17:26 Dose: 0 mls/hr Documented by: [id number] Admin: 08/26/19 11:27 Dose: 15 mls/hr Documented by: [id number] Cefazolin Sodium (Ancef 3000mg) 72.5 mls @ 130 mls/hr IV PREOP [facility]; Protocol Stop: 08/26/19 18:00 Last Infusion: 08/26/19 16:57 Dose: 0 mls/hr Documented by: [id number] Admin: 08/26/19 13:15 Dose: 130 mls/hr Documented by: [id number] Cefazolin Sodium (Ancef 2000mg) 2,000 mg in 15 mls @ 3.75 mls/min IV Q8H [facility]; Protocol Stop: 08/27/19 05:03 Last Admin: 08/27/19 05:39 Dose: 3.75 mls/min Documented by: [id number] Admin: 08/26/19 20:30 Dose: 3.75 mls/min Documented by: [id number] Labetalol HCl (Normodyne) 5 mg IV Q5M PRN PRN Reason: PACU Use-SBP>160 or DBP>100 Stop: 08/26/19 17:37 Last Admin: 08/26/19 16:07 Dose: 10 mg Documented by: [id number] Cosigned by: [id number] Miscellaneous (Floseal Hemostatic Matrix 10ml) 10 ml TOP ONCE ONE Stop: 08/26/19 13:56 Last Admin: 08/26/19 15:22 Dose: 18 ml Documented by: [id number] Thrombin (Recothrom Kit) Confirm Administered Dose 20,000 units .ROUTE .STK-MED ONE Stop: 08/26/19 14:04 Last Admin: 08/26/19 15:22 Dose: Not Given Documented by: [id number]
[2019-08-27] MEDS: ASPIRIN 81 MG ECTAB PO SCH (08:52)
[2019-08-27] MEDS: LABETALOL HCL 300 MG TAB PO SCH ×2 (08:52→20:32)
[2019-08-27] MEDS: ASCORBIC ACID 500 MG TAB PO SCH (08:53)
[2019-08-27] MEDS: CHOLECALCIFEROL 1,000 UNITS TAB PO SCH (08:53)
[2019-08-27] MEDS: CYANOCOBALAMIN 500 MCG TABLET (VITAMIN B-12) PO SCH (08:53)
[2019-08-27] MEDS: TOCOPHERYL, DL-ALPHA 400 UNITS CAP PO SCH (08:54)
[2019-08-27] MEDS ORDERED: LISINOPRIL 40 MG TAB PO SCH (09:00)
--- NOTE | 2019-08-27 12:17 | Orthopedic Progress Note ---
Date of Service August 27, 2019 Assessment & Plan (1) Neurogenic claudication due to lumbar spinal stenosis: This time we will continue physical therapy monitor his MARYAM output anticipate discharge home in the next few days. Present on Admission?: Yes Subjective Back pain controlled leg pain markedly improved. Physical Exam Physical Exam: Patient sitting up at the bedside. Is good strength testing. Appears comfortable. Results & Data Vital Signs (Past 12 Hours) Vital Signs Temp Pulse Resp BP Pulse Ox 08/27/19 10:59 36.6 C 74 18 101/64 94 08/27/19 07:00 37 C 87 20 120/71 93 08/27/19 03:10 36.5 C 86 16 121/75 96
[2019-08-27] MEDS: ACETAMINOPHEN 500 MG TAB PO PRN (18:57)
[2019-08-27] MEDS: DOCUSATE SODIUM/SENNA 50/8.6MG TAB PO SCH (20:32)
[2019-08-27] MEDS: TRAMADOL HCL 50 MG TABLET PO PRN (21:55)
[2019-08-28] MEDS: OXYCODONE HCL IR 5 MG TAB (IMMEDIATE RELEASE) PO PRN ×5 (03:34→20:17)
[2019-08-28] MEDS: POLYETHYLENE (MIRALAX) 17 GM PACK PO SCH ×3 (05:39→17:27)
[2019-08-28] MEDS: TRAMADOL HCL 50 MG TABLET PO PRN ×2 (05:43→14:20)
[2019-08-28 06:25] LABS: Hematocrit (blood only) 33.8 % (42-52); Hemoglobin 11.9 g/dL (14.0-18.0); Mean Corpuscular Hemoglobin 32.2 pg (25-34); Mean Corpuscular Hgb Conc 35.2 g/dL (32-36); Mean Corpuscular Volume 91.6 fL (80-100); Mean Platelet Volume 9.7 fL (7.4-10.4); Platelet Count 143 K/uL (130-400); RDW Coefficient of Variation 13.8 % (11.5-14.5); RDW Standard Deviation 45.1 fL (36.4-46.3); Red Blood Count 3.69 M/uL (4.7-6.1); White Blood Count 10.77 K/uL (4.8-10.8)
[2019-08-28 06:46] LABS: BUN Creatinine Ratio 19.9 (10-20); Calcium 8.3 mg/dl (8.5-10.1); Creatinine Clr Calc Pharmacy 107.7 ml/min; Est GFR (African American) 79.7; Est GFR (Non-African American) 68.8; Potassium 3.8 mmol/L (3.5-5.1)
[2019-08-28] MEDS: NICOTINE 14 MG/24 HR PATCH TD SCH (08:56)
[2019-08-28] MEDS: CHOLECALCIFEROL 1,000 UNITS TAB PO SCH (08:58)
[2019-08-28] MEDS: ASCORBIC ACID 500 MG TAB PO SCH (08:58)
[2019-08-28] MEDS: CYANOCOBALAMIN 500 MCG TABLET (VITAMIN B-12) PO SCH (08:58)
[2019-08-28] MEDS: LABETALOL HCL 300 MG TAB PO SCH ×2 (08:58→21:37)
[2019-08-28] MEDS: ASPIRIN 81 MG ECTAB PO SCH (08:58)
[2019-08-28] MEDS: TOCOPHERYL, DL-ALPHA 400 UNITS CAP PO SCH (08:59)
--- NOTE | 2019-08-28 10:01 | Orthopedic Progress Note ---
Date of Service August 28, 2019 Assessment & Plan (1) Neurogenic claudication due to lumbar spinal stenosis: This time we will continue physical therapy monitor his MARYAM output anticipate discharge home tomorrow. Present on Admission?: Yes Subjective Back pain controlled leg symptoms improved. Physical Exam Physical Exam: Patient is in the chair at the bedside. Is good strength testing. Appears comfortable. Results & Data Vital Signs (Past 12 Hours) Vital Signs Temp Pulse Resp BP BP Pulse Ox 08/28/19 07:27 37.1 C 77 16 126/77 95 08/27/19 23:30 36.8 C 77 18 122/75 97
[2019-08-28] MEDS: ALUMINUM/MAGNESIUM SUSP 30 ML UDC PO PRN (10:54)
--- NOTE | 2019-08-28 14:42 | Hospitalist Progress Note ---
Date of Service August 28, 2019 Assessment & Plan (1) Neurogenic claudication due to lumbar spinal stenosis: S/P POD #[address] Arredondo #1 lumbar decompression with bilateral medial facetectomies and foraminotomies L2-3 L3-4 L4-5 per #2 posterior spinal fusion L3-4 L4-5. #3 placement of po sterior instrumentation L3-4 L4-5. #4 interbody fusion L3-4 L4-5. #5 placement of titanium 11 x 26 mm cage at L3-4 and 13 x 26 mm cage at L4-5 per #6 placement of locally harvested morselized autograft in the posterior lateral gutters. #7 placement infuse collagen sponge, master graft in the posterior lateral gutters and ostial amp and interbody space. pain/wound management per ortho activity and therapy as directed by ortho encourage incentive spirometry, O2 weaned Hemoglobin remains stable and electrolytes are unremarkable Medically stable (2) Acute renal insufficiency: mild elevation in cr baseline 1.3, today 1.59 likely pre renal in setting of poor intake yesterday hold nephrotoxic agents for now including toradol and lisinopril continue IVF until tolerating full diet Kidney function has been normalized (3) Anemia: H&H stable at 12.6 and 36.3 Preop H&H 16.4 and 45.7 Hemoglobin remains stable at 11.9 as of 08/28 (4) Hypertension: blood pressure controlled 120/71 continue labetolol hold lisinopril this morning in setting of mild renal insufficiency Can have lisinopril on discharge (5) Sleep apnea: CPAP at HS (6) Tobacco abuse: smokeless tobacco user encourage tobacco cessation nicotine patch ordered - pt took off this morning - will d/c for now If requests in future recommend 7mg (7) Morbid obesity: BMI 41.4, encourage lifestyle modifications (8) DVT prophylaxis: SCD/TEDS per attending Disposition: per primary Follow up: PCP Dr. Beavers upon discharge Medically stable Subjective 08/28 The patient was seen and examined in medical floor He is status post lumbar decompression and fusion, POD #2 Complaints to have some back pain but denies any other significant symptoms Review of Systems Review of Systems: All systems reviewed and are unremarkable except as noted below Musculoskeletal: Continues to have some back pain without any radiation Physical Exam Physical Exam: Sitting in a chair without any discomfort Constitutional: + obese ENMT: Mouth: no dentition abnormality Mallampati Class: II Neck: + short neck and + thick neck Respiratory: normal respiratory effort Auscultation: lungs clear to auscultation bilaterally Cardiovascular: Rate/Rhythm: regular rate and regular rhythm Gastrointestinal (Abdomen): Inspection/Auscultation: abdomen normal to inspection and normal bowel sounds Percussion/Palpation: abdomen soft; abdomen nontender Musculoskeletal: No acute arthritis in any of the joints Results & Data Vital Signs (Past 12 Hours) Vital Signs Temp Pulse Resp BP Pulse Ox 08/28/19 07:27 37.1 C 77 16 126/77 95 Laboratory Results Short CBC 08/28/19 Range/Units 05:33 WBC 10.77 (4.8-10.8) K/uL Hgb 11.9 L (14.0-18.0) g/dL Hct 33.8 L (42-52) % Plt Count 143 (130-400) K/uL BMP 08/28/19 05:33 Sodium 139 Potassium 3.8 Chloride 111 H Carbon Dioxide 21 BUN 23 H Creatinine 1.17 D Glucose 106 H Calcium 8.3 L Medications Administered Current Inpatient Medications Acetaminophen (Tylenol) 1,000 mg PO Q8H PRN PRN Reason: MILD Pain Rating 1,2,3 Stop: 09/25/19 17:14 Last Admin: 08/27/19 18:57 Dose: 1,000 mg Documented by: Al Hydrox/Mg Hydrox/Simethicone (Maalox) 30 ml PO Q6H PRN PRN Reason: Dyspepsia Stop: 09/25/19 17:14 Last Admin: 08/28/19 10:54 Dose: 30 ml Documented by: Ascorbic Acid (Vitamin C) 1,000 mg PO DAILY [facility] Stop: 09/26/19 08:59 Last Admin: 08/28/19 08:58 Dose: 1,000 mg Documented by: Aspirin (Ecotrin Ectab) 81 mg PO DAILY [facility] Stop: 09/26/19 08:59 Last Admin: 08/28/19 08:58 Dose: 81 mg Documented by: Bisacodyl (Dulcolax) 10 mg CO DAILY PRN PRN Reason: Constipation Stop: 09/25/19 17:14 Cyanocobalamin (Vitamin B-12) 1,000 mcg PO DAILY [facility] Stop: 09/26/19 08:59 Last Admin: 08/28/19 08:58 Dose: 1,000 mcg Documented by: Diphenhydramine HCl (Benadryl Capsule) 25 mg PO Q6H PRN PRN Reason: Allergic Rhinitis/Insomnia Stop: 09/25/19 17:14 Famotidine (Pepcid) 20 mg PO Q12H PRN PRN Reason: Dyspepsia Stop: 09/25/19 17:14 Hydromorphone HCl (Dilaudid) 0.5 mg IV Q3H PRN PRN Reason: moderate pain (scale 4-6) Stop: 09/09/19 17:14 Hydromorphone HCl (Dilaudid) 1 mg IV Q3H PRN PRN Reason: severe pain (scale 7-10) Stop: 09/09/19 17:14 Hydroxyzine HCl (Vistaril) 25 mg PO Q8H PRN PRN Reason: Anxiety Stop: 09/25/19 17:14 Promethazine HCl 12.5 mg/ (Sodium Chloride) 50.5 mls @ 204 mls/hr IV Q6H PRN PRN Reason: Nausea &/or Vomiting Stop: 09/25/19 17:14 Lorazepam (Ativan) 0.5 mg in 1 mls @ 0.5 mls/min IV Q8H PRN PRN Reason: Sedation/Anxiety Stop: 09/25/19 17:14 Influenza Virus Vaccine Quadrival (Flu Vaccine, Do Not Administer) 1 ea N/A PRN PRN PRN Reason: Notification Stop: 09/25/19 17:14 Ketorolac Tromethamine (Toradol) 30 mg IV Q6H [facility] Last Admin: 08/27/19 05:39 Dose: 30 mg Documented by: Labetalol HCl (Normodyne) 600 mg PO BID [facility] Stop: 09/25/19 20:59 Last Admin: 08/28/19 08:58 Dose: 600 mg Documented by: Lisinopril (Zestril) 40 mg PO QAM [facility] Stop: 09/26/19 08:59 Loperamide HCl (Imodium) 2 mg PO UD PRN PRN Reason: Diarrhea Stop: 09/25/19 17:14 Lorazepam (Ativan) 0.5 mg PO Q8H PRN PRN Reason: Sedation/Anxiety Stop: 09/25/19 17:14 Magnesium Hydroxide (Milk Of Magnesia) 30 ml PO DAILY PRN PRN Reason: Constipation Stop: 09/25/19 17:14 Metoclopramide HCl (Reglan) 10 mg IV Q6H PRN PRN Reason: Nausea &/or Vomiting Stop: 09/25/19 17:14 Miscellaneous (Remove Nicoderm Patch) 1 ea N/A DAILY@0859 [facility] Stop: 09/26/19 08:58 Last Admin: 08/28/19 08:56 Dose: Not Given Documented by: Naloxone HCl (Narcan) 0.1 mg IV Q5M PRN; Protocol PRN Reason: Oversedation/Resp Depression Stop: 09/25/19 17:14 Nicotine (Nicoderm Cq) 14 mg TD QAM [facility] Stop: 09/25/19 18:14 Last Admin: 08/28/19 08:56 Dose: Not Given Documented by: Ondansetron HCl (Zofran) 4 mg IV Q6H PRN PRN Reason: Nausea &/or Vomiting Stop: 09/25/19 17:14 Ondansetron HCl (Zofran Odt) 4 mg PO Q6H PRN PRN Reason: Nausea Stop: 09/25/19 17:14 Oxycodone HCl (Roxicodone Immediate Rel) 5 - 10 mg PO Q4H PRN PRN Reason: Moderate-Severe Pain Stop: 09/09/19 17:14 Last Admin: 08/28/19 12:15 Dose: 10 mg Documented by: Pneumococcal Polyvalent Vaccine (Pneumococcal Vacc, Do Not Administer) 1 ea N/A PRN PRN PRN Reason: Notification Stop: 09/25/19 17:14 Polyethylene Glycol (Miralax Powder Packet) 17 gm PO Q6 [facility] Stop: 09/26/19 05:59 Last Admin: 08/28/19 12:15 Dose: 17 gm Documented by: Senna/Docusate Sodium (Senokot S) 2 tab PO HS [facility] Stop: 09/25/19 20:59 Last Admin: 08/27/19 20:32 Dose: 2 tab Documented by: Sodium Biphosphate/Sodium Phosphate (Fleet Enema) 132 ml CO ONE PRN PRN Reason: Constipation Stop: 09/25/19 17:14 Tramadol HCl (Ultram) 50 - 100 mg PO Q4H PRN PRN Reason: Moderate-Severe Pain Stop: 09/25/19 17:14 Last Admin: 08/28/19 14:20 Dose: 100 mg Documented by: Vitamin D (Vitamin D3) 1,000 units PO DAILY [facility] Stop: 09/26/19 08:59 Last Admin: 08/28/19 08:58 Dose: 1,000 units Documented by: Vitamin E (Vitamin E) 400 units PO DAILY [facility] Stop: 09/26/19 08:59 Last Admin: 08/28/19 08:59 Dose: Not Given Documented by:
[2019-08-28] MEDS: DOCUSATE SODIUM/SENNA 50/8.6MG TAB PO SCH (21:37)
[2019-08-29] MEDS: ALUMINUM/MAGNESIUM SUSP 30 ML UDC PO PRN (00:34)
[2019-08-29] MEDS: OXYCODONE HCL IR 5 MG TAB (IMMEDIATE RELEASE) PO PRN ×4 (00:34→12:24)
[2019-08-29] MEDS: POLYETHYLENE (MIRALAX) 17 GM PACK PO SCH ×3 (00:35→11:11)
[2019-08-29] MEDS: TRAMADOL HCL 50 MG TABLET PO PRN (06:45)
[2019-08-29 07:39] VITALS: TEMP 98.8; O2SAT 95
[2019-08-29] MEDS: NICOTINE 14 MG/24 HR PATCH TD SCH (08:20)
[2019-08-29] MEDS: TOCOPHERYL, DL-ALPHA 400 UNITS CAP PO SCH (08:23)
[2019-08-29] MEDS: CYANOCOBALAMIN 500 MCG TABLET (VITAMIN B-12) PO SCH (08:23)
[2019-08-29] MEDS: ASPIRIN 81 MG ECTAB PO SCH (08:23)
[2019-08-29] MEDS: ASCORBIC ACID 500 MG TAB PO SCH (08:23)
[2019-08-29] MEDS: LABETALOL HCL 300 MG TAB PO SCH (08:23)
[2019-08-29] MEDS: CHOLECALCIFEROL 1,000 UNITS TAB PO SCH (08:23)
--- NOTE | 2019-08-29 08:57 | Hospitalist Progress Note ---
Date of Service August 29, 2019 Assessment & Plan (1) Neurogenic claudication due to lumbar spinal stenosis: S/P POD #[address] Arredondo #1 lumbar decompression with bilateral medial facetectomies and foraminotomies L2-3 L3-4 L4-5 per #2 posterior spinal fusion L3-4 L4-5. #3 placement of po sterior instrumentation L3-4 L4-5. #4 interbody fusion L3-4 L4-5. #5 placement of titanium 11 x 26 mm cage at L3-4 and 13 x 26 mm cage at L4-5 per #6 placement of locally harvested morselized autograft in the posterior lateral gutters. #7 placement infuse collagen sponge, master graft in the posterior lateral gutters and ostial amp and interbody space. Doing well Post-op. Ambulating, pain controlled Pain/wound management per ortho Activity and therapy as directed by ortho Encourage incentive spirometry Hemoglobin remained stable and electrolytes are unremarkable (2) Acute renal insufficiency: Resolved Post op had mild elevation Cr at 1.59. Pt's baseline Cr: 1.3 08/28/19 Cr: 1.17 Lisinopril was on hold Renal functions back to Baseline Can resume lisinopril (3) Anemia: Preop H&H 16.4 and 45.7 Hemoglobin remains stable at 11.9 as of 08/28 (4) Hypertension: Stable Continue labetalol Lisinopril was held secondary to renal insufficiency Can resume lisinopril upon discharge (5) Sleep apnea: CPAP at HS (6) Tobacco abuse: smokeless tobacco user encourage tobacco cessation (7) Morbid obesity: BMI 41.4, encourage lifestyle modifications Medically stable Disposition: per primary, likely d/c home today Follow up: PCP Dr. Beavers upon discharge Pt care coordinated with Dr Hernandez. See addendum Supervising Physician Co-Signing Physician Notes Attending addendum: The patient was seen and examined in medical floor He is status post term lumbar decompression and fusion, POD #3 Remains medically stable with minimal pain at the back Will be discharged home today by the primary service On examination Obese, sitting on a chair without any symptoms Hemodynamically stable Chest-decreased breath sounds otherwise clear to auscultate bilaterally HeartS1-S2, no apparent distress Abdomenbenign Extremitiestrace edema bilaterally His labs and imaging studies reviewed Medically stable following lumbar decompression and fusion Agree with assessment and plan as outlined above by PINKY Martini DR Subjective Pt seen and examined. Sitting up in bedside chair. Reports doing well and has been ambulating in [place]. Reports pain controlled. Eating and drinking normally. Reports passing gas. Urinating without difficulty. Denies fever/chills, N/V/D, THAO, dizziness, CP, SOB, cough, sore throat, abdominal pain, paresthesias, extremity weakness, extremity edema, rashes, urinary symptoms. Review of Systems Review of Systems: All systems reviewed & are unremarkable except as noted in HPI & below Physical Exam Physical Exam: General: no distress, obese Head: normocephalic, atraumatic Eyes: conjunctiva non-injected, anicteric ENT: normal inspection external ears, nose, mucous membranes moist Neck: supple, trachea midline Lungs: clear, no respiratory distress, no wheezing/rhonchi/rales CV: RRR, no murmur, no pretibial edema Abd: normal BS, soft, non-tender Back: surgical dressing in place is dry. MARYAM drain in place with serosanguineous fluid Ext: no cyanosis, no calf tenderness; flexion, extension legs intact, distal pulses intact Neuro: A&O x 3, no focal deficits noted, normal affect Skin: warm, dry Results & Data Vital Signs (Past 12 Hours) Vital Signs Temp Pulse Resp BP BP Pulse Ox Pulse Ox 08/29/19 07:39 37.1 C 76 18 152/80 H 95 08/29/19 00:20 98 08/28/19 23:21 37.3 C 88 16 135/79 98 08/28/19 21:36 84 145/72 H
--- NOTE | 2019-08-29 09:23 | Discharge Summary ---
Date of Service August 29, 2019 Admission HPI Per Admitting Provider This is a 59-year-old male who presents with chronic persistent back and bilateral leg pain. Failing extensive course of nonoperative care is here for surgical intervention. Principal Diagnosis Lumbar spinal stenosis with neurogenic claudication Discharge Data Allergies Allergy/AdvReac Type Severity Reaction Status Date / Time No Known Allergies Allergy Verified 08/26/19 11:11 Consultations 08/26/19 17:15 Consult Case Management - Discharge Planning Routine Consult Hospitalist Routine Procedures Performed Operation Date: 08/26/19 12:55 Actual Procedures p L3-L5 Decompression and Fusion, Spinal Cord Monitoring(Not Applicable) - Boby Arredondo DO Ordered Studies 08/26/19 12:55 FL fluoroscopy <1hr Routine FL lumbar spine 2-3V Routine Hospital Course (1) Neurogenic claudication due to lumbar spinal stenosis: Patient underwent lumbar depression fusion tolerated this well was taken to orthopedic for postoperative. Postop day #1 leg symptoms were improved and is ambulating well. Progressed to postop day #2. MARYAM drain still significant. Pain well controlled. Neurologically intact. Subsequent discharge home with home health to discontinue the drain the next 24 to 48 hours. Discharge orders instructions can be found chart for further review. Total Time Total Time Spent Total Time Spent (In Minutes): 20 minutes Discharge Plan Discharge Items Patient Disposition: Home - Home Health Services Reason For Visit: Low Back Pain, LUMBAR SPINAL STENOSIS W/NEUROGENIC Discharge Diagnosis: Lumbar spinal stenosis with neurogenic claudication Activity: As commented below Non-emergency contact: Primary Care Provider Call non-emergency contact if: you have any medication questions Follow-up/Referrals: Mónica Beavers D.O. [Primary Care Provider] - Diet: Regular Addtl Attending Provider Instructions: ACTIVITY RECOMMENDATIONS: SELF CARE INSTRUCTIONS AFTER THORACIC/LUMBAR FUSIONS 1. You may walk to your tolerance. It is good exercise for your legs and back. Expect some back and intermittent leg aches and pains. 2. You may perform "counter-top" level activities (make a sandwich, haylie with a project, etc.). 3. No bending or lifting of more than 10 pounds or back twisting of any nature (roll like a log when turning in bed). 4. You may ride in a car for 20-30 minutes at a time. No driving until after your first visit with your doctor. 5. Frequent changes of position and restricting sitting to 30 minutes at a time will help limit the amount of back spasms and stiffness you may experience. 6. You may discontinue the use of ambulatory aids (cane, crutches, etc.) once your strength and confidence allow. 7. You may it trainer the shower and let water strike your incision when you arrive home at least once daily. Do not take a tub bath, sit in a hot tub or go into a swimming pool until after your first recheck in the office. SPECIAL CARE INSTRUCTIONS: VERY IMPORTANT TO READ AND REVIEW A. Your surgical incision has been closed with a cosmetic suture under the skin that will dissolve in about 6 weeks. In 14 days, you can use a pair of clean scissors and cut the suture that is left outside of the skin at the ends of your incision. 1. The small skin tapes can be removed 7 days after surgery if they have not fallen off by that point. 2. You may keep the wound open to air as much as possible to promote healing after post-op day number 5 unless told otherwise by your doctor. 3. If you think the wound looks like it is becoming infected (redness or worsening drainage) and/or you are experiencing fever, chill or worsening back pain and muscle spasms, contact the office so that we may evaluate you as soon as possible. B. Complications are uncommon, but please contact us if you have any signs or symptoms of: 1. wound infection (fever higher than 102.5 degrees F, redness, separation of wound, drainage, or increasing pain from the incision) 2. blood clots in legs (pain, swelling, redness and warmth in legs) 3. urinary tract infection (fever higher than 102.5 degrees F, burning upon urination or increased frequency of urination) 4. nerve problems (inability to walk on your toes or heels, numbness, loss of bowel or bladder control) 5. any other symptoms that concern you C. Please call the office at if you have any concerns or questi ons about your operation or recovery. D. No smoking! Smoking drastically decreases the chance of a solid fusion. E. Do not take any anti-inflammatory medications (Indocin, Advil, Motrin, Aspirin, Naprosyn, etc.) as these may inhibit the chance of a solid fusion. Tylenol is okay to take for pain. MANAGING PAIN AFTER SPINAL SURGERY 1. Narcotic medication is intended for short-term use and will be provided for surgical pain. Surgical pain usually lasts for a period of 4-6 weeks. Narcotic medication includes Percocet, Vicodin, Darvocet, Tylenol #3 or Lortab. 2. Longer-term pain is more appropriately treated with non-narcotic medication such as Tylenol ES. 3. Muscle spasm is not appropriately treated with narcotics. Muscle relaxers such as Soma, Flexeril or Skelaxin can be used along with Tylenol ES. 4. Remember that we all live with some "aches and pains". This is not unusual or uncommon after an injury or as we get older. a. Back pain is expected and may include muscle spasms for 4 to 6 weeks after surgery. The pain should gradually improve. If the pain worsens for no apparent reason, please contact the office. b. Intermittent leg pain may also be experienced and should not be concerned about unless it worsens for no apparent reason. If so, please contact the office. 5. We will provide appropriate medication within the normal guidelines of their prescribed use. We will also be very cautious and aware of potential abuse and extended duration of patients' medication needs. a. Pain medications are for your comfort and to assist with sleep and rest so that the tissue can heal. They are not provided in order to return to normal activity and should not be used through the day. To do so or worsening pain at night can result from ongoing tissue damage and development of tolerance to the prescribed medicine. 6. Please allow 2-3 days to process refills. Prescriptions will not be mailed but must be picked up at the office. FOLLOW UP VISIT: Keep your scheduled follow-up appointment. Any questions, please call the office at . Pending Studies at Discharge: No Stand-Alone Forms: [email or web address], Smoking Cessation Medications and DC Order Prescriptions: New oxycodone 5 mg tablet 5 mg PO Q6H PRN (Reason: pain, severe) Qty: 30 RF: 0 tramadol 50 mg tablet 50 mg PO Q6H PRN (Reason: pain, moderate) Qty: 30 RF: 0 Continued ascorbic acid (vitamin C) [Vitamin C] 1,000 mg Tablet 1,000 mg PO DAILY RF: 0 labetalol 200 mg Tablet 600 mg PO BID RF: 0 loperamide [Imodium A-D] 2 mg Capsule 2 mg PO UD PRN (Reason: Diarrhea) RF: 0 cyanocobalamin (vitamin B-12) 1,000 mcg Tablet 1,000 mcg PO DAILY RF: 0 lisinopril 40 mg Tablet 40 mg PO QAM RF: 0 vitamin E 400 unit Capsule 400 unit PO DAILY RF: 0 cholecalciferol (vitamin D3) [Vitamin D3] 1,000 unit Capsule 1,000 unit PO DAILY RF: 0 aspirin [Aspirin Low Dose] 81 mg Tablet,Delayed Release (Dr/Ec) 81 mg PO DAILY RF: 0 Discharge Orders: Discharge Order (Routine); Ordered 08/29/19 Ordered By: Boby Arredondo Admission Data Admit Date/Time: 08/26/19 15:54 Attending Provider: Boby Arredondo Admit Provider: Boby Arredondo Primary Care Provider: Mónica Beavers. Other Providers: Vipin Roper ; Roverto Hernandez
[2019-08-29 12:06] VITALS: BP 135/79; PULSE 83
[2019-08-31] MEDS ORDERED: HydrALAZINE HCL 20 MG/ML VIAL IV STA (18:19)
[2019-08-31] MEDS ORDERED: HYDROmorphone INJ 1 MG/ML SYRINGE IV STA (18:19)
[2019-08-31] MEDS ORDERED: cloNIDine HCl 0.1 MG TAB PO ONE (18:19)
== END 2019-08-29 13:46 | disposition home health service (06) | DRG 454 ==
LOC: ASU 10:45 → 3E 15:54